=== PATIENT | female | born 1945 | race Caucasian/White ===

== ENCOUNTER 2024-12-04 11:03 | Emergency (ER) | payer OTHER ==
--- NOTE | 2024-12-04 12:37 | RAD REPORT ---
EXAM: CT brain without contrast HISTORY: DIZZINESS COMPARISON: None TECHNIQUE: Multiple contiguous axial images were obtained and a CT of the brain without contrast. Sag ittal and coronal reformats were performed. One or more of the following dose reduction techniques were used: Automated exposure control, adjust ment of the mA and/or kV according to patient size, and/or iterative reconstruction. FINDINGS: No evidence of hydrocephalus, intracranial hemorrhage, or extra-axial fluid collection. Mild brain atrophy with mild periventricular and deep white matter chronic microvascular ischemic ch anges present. No evidence of midline shift or areas of brain edema. The calvarium is intact. The visualized paranasal sinuses and mastoid air cells are essentially clear . IMPRESSION: No evidence of acute intracranial abnormality.
[2024-12-04 12:51] LABS: Absolute Lymphocytes (CBC) 1.1 K/uL (0.7-4.9); Hematocrit 44.9 % (36.0-45.0); Hemoglobin 15.3 g/dL (12.0-15.0); MCH 29.6 pg (27.0-35.0); MCHC 34.0 g/dL (32.0-36.0); MCV 87.0 fL (80-100); MPV 7.8 fL (7.6-11.3); Nucleated RBC Absolute Count 0.0 (0-0); Nucleated Red Blood Cells % 0.3 % (0-0); RBC Red Blood Cell Count 5.16 M/uL (3.86-4.86); White Blood Count 7.20 thou/uL (4.3-10.9)
[2024-12-04 13:08] LABS: Anion Gap 8.0 mEq/L (5.0-15.0); BUN Blood Urea Nitrogen 17.0 mg/dL (7-18); Glucose Level 125.0 mg/dL (74-106); Potassium 4.0 mEq/L (3.5-5.1); Troponin High Sensitivity 8.0 pg/mL (<58.9)
--- NOTE | 2024-12-04 13:08 | RAD REPORT ---
EXAM: Chest Single View HISTORY: 79 years Female CHEST PAIN COMPARISON: No prior exams FINDINGS: LUNGS/PLEURA: The lungs are clear. No pleural effusions or pneumothorax. No pulmonary edema. CARDIAC/MEDIASTINUM: The cardiac silhouette is within normal limits. UPPER ABDOMEN: No significant abnormality. BONES: No acute abnormality. LINES/TUBES/OTHER: N/A IMPRESSION: No evidence of acute cardiopulmonary disease.
--- NOTE | 2024-12-04 13:31 | ER ---
Nurse's Notes [facility] Name: Susy Armenta Age: 79 yrs Sex: Female : 1945 Arrival Date: 12/04/2024 Time: 11:03 Bed 14 Private MD: Diagnosis: Dizziness and giddiness Presentation: 12/04 11:55 Chief complaint: Patient states: Dizziness that began yesterday at 1830 that is worse ss when moving at all. Pt reports she had previous episodes that were similar since October, but those episodes were when she was laying down. Coronavirus screen: Client denies travel out of the [place] in the last 14 days. Ebola Screen: Patient denies exposure to infectious person. Patient denies travel to an Ebola-affected area in the 21 days before illness onset. Initial Sepsis Screen: Does the patient meet any 2 criteria? No. Patient's initial sepsis screen is negative. Does the patient have a suspected source of infection? No. Patient's initial sepsis screen is negative. Risk Assessment: Do you want to hurt yourself or someone else? Patient reports no desire to harm self or others. Onset of symptoms was December 03, 2024. 11:55 Method Of Arrival: Ambulatory ss 11:55 Acuity: KIKO 3 ss 11:58 Note NIHSS 0. ss Historical: - Allergies: 11:58 PENICILLINS; ss 11:58 Sulfa (Sulfonamide Antibiotics); ss - PMHx: 11:58 Hypertensive disorder; ss - PSHx: 11:58 Cholecystectomy; R nephrectomy; L rotator cuff repair; tubal ligation; ss - Infectious Disease History:: Denies. - Social history:: Smoking status: Patient denies any tobacco usage or history of. Screenin:16 [facility] ED Fall Risk Assessment (Adult) History of falling in the last 3 months, ar8 including since admission No falls in past 3 months (0 pts) Confusion or Disorientation No (0 pts) Intoxicated or Sedated No (0 pts) Impaired Gait Yes (1 pt) Mobility Assist Device Used No (0 pt) Altered Elimination No (0 pt) Score/Fall Risk Level 0 - 2 = Low Risk Oriented to surroundings, Maintained a safe environment. Abuse screen: Denies threats or abuse. Nutritional screening: No deficits noted. Tuberculosis screening: No symptoms or risk factors identified. Assessment: 11:57 Reassessment: Isak, MANAGEMENT NURSE RN in triage room assessing patient at this time. ss 12:15 General: Appears uncomfortable, Behavior is calm, cooperative. ar8 12:15 Pain: Denies pain. Neuro: Level of Consciousness is awake, alert, obeys commands, ar8 Oriented to person, place, time, situation, Construction Trades Contractor are equal bilaterally Moves all extremities. Full function Gait is unsteady, due to dizziness. Speech is normal, Facial symmetry appears normal, Reports dizziness. Neuro: Reports dizziness, since 179912-04-24. Cardiovascular: Patient's skin is warm and dry. Respiratory: Airway is patent Respiratory effort is even, unlabored, Respiratory pattern is regular, symmetrical. GI: Reports nausea. : No signs and/or symptoms were reported regarding the genitourinary system. EENT: No signs and/or symptoms were reported regarding the EENT system. Derm: No signs and/or symptoms reported regarding the dermatologic system. 13:51 Reassessment: Delay in discharge- patient is attempting to find a ride home. ar8 Vital Signs: 11:55 BP 168 / 83; Pulse 17; Resp 16; Pulse Ox 99% on R/A; Pain 0/10; ss 12:16 BP 168 / 82; Pulse 81; Resp 18; Pulse Ox 98% on R/A; Pain 0/10; ar8 13:00 BP 141 / 84; Pulse 72; Resp 18; Pulse Ox 95% on R/A; ar8 13:30 BP 154 / 77; Pulse 84; Resp 17; Pulse Ox 97% on R/A; Pain 0/10; ar8 11:55 Pain Scale: Adult ss 12:16 Pain Scale: Adult ar8 13:30 Pain Scale: Adult ar8 NIH Stroke Scale Scores: 17:21 NIHSS Score: 0 dr5 ED Course: 11:09 Patient arrived in ED. im 11:17 Isak Perera FNP-C is PHCP. dr5 11:17 Blaine Chua MD is Attending Physician. dr5 11:55 Arm band placed on left wrist. ss 11:57 Triage completed. ss 12:14 Houston Harmon, FADI is Primary Nurse. ar8 12:20 Bed in low position. Call light in reach. Side rails up X2. Provided Education on: plan ar8 of care, diagnostics and estimated wait time. Client placed on continuous cardiac and pulse oximetry monitoring. NIBP monitoring applied. 12:20 No provider procedures requiring assistance completed. ar8 12:[address] via stretcher. ar8 12:27 CT Head Brain wo Cont In Process Unspecified. EDMS 12:47 EKG done, by measurement technician. reviewed by Isak MENDES. em1 12:47 Initial lab(s) drawn, by labor employment associate, sent to lab. Inserted saline lock: 20 gauge in right em1 antecubital area, using aseptic technique. Blood collected. Flushed with 10 mL NS. 13:03 XRAY Chest (1 view) In Process Unspecified. EDMS 13:51 IV discontinued, intact, bleeding controlled, No redness/swelling at site. Pressure ar8 dressing applied. Administered Medications: No medications were administered Medication: 12:16 VIS not applicable for this client. ar8 Outcome: 13:30 Discharge ordered by MD. dr5 13:51 Discharged to home ambulatory, ar8 13:51 Condition: stable 13:51 Discharge instructions given to patient, Instructed on discharge instructions, follow up and referral plans. medication usage, Demonstrated understanding of instructions, follow-up care, medications, Prescriptions given X 1, 14:21 Patient left the ED. kj2 NIH Stroke Scale - NIH Stroke Score Date: 12/04/2024 Time: 17:21 Total Score = 0 10. Dysarthria (speech clarity - read or repeat words) - 0(Normal) 11. Extinction and Inattention (visual/tactile/auditory/spatial/personal) - 0(No abnormality) 1a. Level of Consciousness (LOC) - 0(Alert) 1b. Level of Consciousness (LOC) (Month \T\ Age) - 0(Both) 1c. LOC Commands (Open \T\ Closes Eyes/Food Or Baggage Handling [place]) - 0(Both) 2. Best Gaze (Lateral Gaze Paresis) - 0(Normal) 3. Visual Field Loss - 0(No visual loss) 4. Facial Palsy - 0(Normal) 5a. Left Arm: Motor (10-second hold) - 0(No drift) 5b. Right Arm: Motor (10-second hold) - 0(No drift) 6a. Left Leg: Motor (5-second hold - always test supine) - 0(No drift) 6b. Right Leg: Motor (5-second hold - always test supine) - 0(No drift) 7. Limb Ataxia (finger/nose \T\ heel/torres - test with eyes open) - 0(Absent) 8. Sensory Loss (pinprick arms/legs/face) - 0(Normal) 9. Best Language: Aphasia (description/naming/reading) - 0(No aphasia) Initials: dr5 Signatures: Dispatcher [employer] [place] em1 Julisa Gonsales, FADI RN ss Sary Sherman Krystal, RN RN kj2 Isak Perera, INVENTORY CLERK-C INVENTORY CLERK-Cdr5 Houston Harmon RN RN ar8
--- NOTE | 2024-12-04 13:31 | EDPHYS ---
Physician Documentation [facility] Name: Susy Armenta Age: 79 yrs Sex: Female : 1945 Arrival Date: 12/04/2024 Time: 11:03 Bed 14 Private MD: ED Physician Blaine Chua HPI: 12/04 17:21 This 79 yrs old Female presents to ER via Ambulatory with complaints of dr5 Dizziness. 17:21 The patient presents with dizziness. dr5 17:21 Patient is a 79-year-old female with history of hypertension coming in with dr5 intermittent dizziness has been going on since 1830 yesterday. Patient reports that she went to ENT clinic today and aspect of stress in her ear for further evaluation. Patient reports that ENT states that if her CT scan was normal that they would follow-up with her this Saturday. Patient denies dizziness during initial assessment.. Historical: - Allergies: 11:58 PENICILLINS; ss 11:58 Sulfa (Sulfonamide Antibiotics); ss - PMHx: 11:58 Hypertensive disorder; ss - PSHx: 11:58 Cholecystectomy; R nephrectomy; L rotator cuff repair; tubal ligation; ss - Infectious Disease History:: Denies. - Social history:: Smoking status: Patient denies any tobacco usage or history of. ROS: 17:21 Constitutional: as per hpi dr5 Exam: 17:21 Constitutional: This is a well developed, well nourished patient who is awake, alert, dr5 and in no acute distress. Head/Face: Normocephalic, atraumatic. Eyes: Pupils equal round and reactive to light, extra-ocular motions intact. Lids and lashes normal. Conjunctiva and sclera are non-icteric and not injected. Cornea within normal limits. Periorbital areas with no swelling, redness, or edema. Neck: Trachea midline, no thyromegaly or masses palpated, and no cervical lymphadenopathy. Supple, full range of motion without nuchal rigidity, or vertebral point tenderness. No Meningismus. Chest/axilla: Normal chest wall appearance and motion. Nontender with no deformity. No lesions are appreciated. Cardiovascular: Regular rate and rhythm with a normal S1 and S2. Normal PMI, no JVD. No pulse deficits. Respiratory: Lungs have equal breath sounds bilaterally, clear to auscultation. No rales, rhonchi or wheezes noted. No increased work of breathing, no retractions or nasal flaring. Back: No spinal tenderness. No costovertebral tenderness. Full range of motion. Skin: Warm, dry with normal turgor. Normal color with no rashes, no lesions, and no evidence of cellulitis. MS/ Extremity: Pulses equal, no cyanosis. Neurovascular intact. Full, normal range of motion. Neuro: Awake and alert, GCS 15, oriented to person, place, time, and situation. Cranial nerves II-XII grossly intact. Motor strength 5/5 in all extremities. Sensory grossly intact. Cerebellar exam normal. Normal gait. Vital Signs: 11:55 BP 168 / 83; Pulse 17; Resp 16; Pulse Ox 99% on R/A; Pain 0/10; ss 12:16 BP 168 / 82; Pulse 81; Resp 18; Pulse Ox 98% on R/A; Pain 0/10; ar8 13:00 BP 141 / 84; Pulse 72; Resp 18; Pulse Ox 95% on R/A; ar8 13:30 BP 154 / 77; Pulse 84; Resp 17; Pulse Ox 97% on R/A; Pain 0/10; ar8 11:55 Pain Scale: Adult ss 12:16 Pain Scale: Adult ar8 13:30 Pain Scale: Adult ar8 NIH Stroke Scale Scores: 17:21 NIHSS Score: 0 dr5 MDM: 11:17 Medical Screening Exam initiated dr5 17:21 Differential diagnosis: cardiac arrhythmia, generalized weakness, NSTEMI, STEMI, CVA, dr5 brain mass, intracranial hemorrhage, anemia, electrolyte abnormality. Data reviewed: vital signs, nurses notes, lab test result(s), cardiac enzymes, troponin i, CBC, white blood cell count, hemoglobin, hematocrit, platelets, electrolytes, sodium, potassium, chloride, serum bicarbonate, BUN, creatinine, serum glucose, EKG, radiologic studies, CT scan, plain films. Consideration of Admission/Observation Escalation of care including admission/observation considered. Escalation considered patient found to have elevated troponin or abnormality on CT head. I considered the following discharge prescriptions or medication management in the emergency department I discussed and recommended Over The Counter medications. Care significantly affected by the following chronic conditions: Hypertension. Care significantly affected by the following Social Determinants of Health: Poor access to healthcare and/or lack of insurance, Poor access to transportation, Problems related to employment. Counseling: I had a detailed discussion with the patient and/or guardian regarding the historical points, exam findings, and any diagnostic results supporting the discharge/admit diagnosis, the presence of at least one elevated blood pressure reading (>120/80) during this emergency department visit, lab results, radiology results, the need for outpatient follow up, for definitive care, an ENT specialist, to return to the emergency department if symptoms worsen or persist or if there are any questions or concerns that arise at home. Special discussion: I discussed with the patient/guardian in detail that at this point there is no indication for admission to the hospital. It is understood, however, that if the symptoms persist or worsen the patient needs to return immediately for re-evaluation. Based on the history and exam findings, there is no indication for further emergent testing or inpatient evaluation. I discussed with the patient/guardian the need to see the ENT specialist for further evaluation of the symptoms. ED course: Patient denies any symptoms during ER stay and reports feeling much better. All labs and CT scan and x-ray reports printed and given to patient to take with her to ENT. Patient denies chest pain, shortness of breath. All questions answered. Strict ER precautions given. 12/04 12: Order name: Basic Metabolic Panel; Complete Time: 13:12/04 12: Order name: CBC with Diff; Complete Time: 12:55 [facility] 12/04 12: Order name: Troponin HS; Complete Time: 13: [facility] 12/04 12: Order name: XRAY Chest (1 view); Complete Time: 13: [facility] 12/04 12:01 Order name: CT Head Brain wo Cont; Complete Time: 12:41 12/04 12: Order name: Cardiac monitoring; Complete Time: 12:46 12/04 12:01 Order name: EKG - Nurse/Tech; Complete Time: 12:46 12/04 12:01 Order name: IV Saline Lock; Complete Time: 12:46 [facility] 12/04 12: Order name: Labs collected and sent; Complete Time: 12:47 [facility] 12/04 12: Order name: O2 Per Protocol; Complete Time: 12:47 [facility] 12/04 12:01 Order name: O2 Sat Monitoring; Complete Time: 12:47 dr5 EC:37 Rate is 75 beats/min. Rhythm is regular. QRS [place] is Normal. TX interval is normal at dr5 166 msec. QRS interval is normal at 106 msec. QT interval is normal at 376 msec. Clinical impression: Normal ECG and No evidence of ischemia. Administered Medications: No medications were administered Disposition Summary: 12/04/24 13:30 Discharge Ordered Notes: Location: Home dr5 Condition: Stable dr5 Diagnosis - Dizziness and giddiness dr5 Followup: dr5 - With: Emergency Department - When: As needed - Reason: Worsening of condition Followup: dr5 - With: Private Physician - When: 1 - 2 days - Reason: Recheck today's complaints, Continuance of care, Re-evaluation by your physician Discharge Instructions: - Discharge Summary Sheet dr5 - Dizziness dr5 Forms: - Medication Reconciliation Form dr5 - Patient Portal Instructions dr5 - Leadership Thank You Letter dr5 Prescriptions: - Meclizine 25 mg Oral Tablet - take 1 tablet ORAL route every 8 hours As needed; 30 tablet; Refills: 0, dr5 Product Selection Permitted NIH Stroke Scale - NIH Stroke Score Date: 12/04/2024 Time: 17:21 Total Score = 0 10. Dysarthria (speech clarity - read or repeat words) - 0(Normal) 11. Extinction and Inattention (visual/tactile/auditory/spatial/personal) - 0(No abnormality) 1a. Level of Consciousness (LOC) - 0(Alert) 1b. Level of Consciousness (LOC) (Month \T\ Age) - 0(Both) 1c. LOC Commands (Open \T\ Closes Eyes/Auto Body Repair Estimator) - 0(Both) 2. Best Gaze (Lateral Gaze Paresis) - 0(Normal) 3. Visual Field Loss - 0(No visual loss) 4. Facial Palsy - 0(Normal) 5a. Left Arm: Motor (10-second hold) - 0(No drift) 5b. Right Arm: Motor (10-second hold) - 0(No drift) 6a. Left Leg: Motor (5-second hold - always test supine) - 0(No drift) 6b. Right Leg: Motor (5-second hold - always test supine) - 0(No drift) 7. Limb Ataxia (finger/nose \T\ heel/torres - test with eyes open) - 0(Absent) 8. Sensory Loss (pinprick arms/legs/face) - 0(Normal) 9. Best Language: Aphasia (description/naming/reading) - 0(No aphasia) Initials: dr5 Signatures: Dispatcher [employer] EDMS Julisa Gonsales, RN RN ss Isak Perera, GENERAL MATCHER-C GENERAL MATCHER-Cdr5 Corrections: (The following items were deleted from the chart) 12: 12:02 Chest Single View+RAD.RAD.BRZ ordered. EDMS EDMS 12: 12:02 Head Brain Wo Cont+CT.RAD.BRZ ordered. EDMS EDMS
[2024-12-04 15:58] VITALS: BP 154/77; O2SAT 97
== END 2024-12-04 14:21 | disposition home or self-care (01) ==
LOC: ER 11:03
DX: R42 Dizziness and giddiness (principal); I10 Essential (primary) hypertension
CPT/HCPCS: 36415; 70450; 71045; 80048; 84484; 85025; 93005; 99284